=== PATIENT | male | born 1960 | race Caucasian/White ===

== ENCOUNTER 2019-06-11 15:23 | Emergency (ER) | payer OTHER ==
[~2019-06-11] VITALS: Ht 162.6 cm; Wt 80.0 kg
[~2019-06-11 15:23] MED LIST: CITA-98; HYDR-1666; IBUP100T31; LISI-471; MTF1000T; SULF1TAB23; [UNRECOGNIZED DRUG - CODE]; [UNRECOGNIZED DRUG - CODE]; [UNRECOGNIZED DRUG - REMARK]
[2019-06-11 15:36] VITALS: Ht 162.6 cm; Wt 80.0 kg
[2019-06-11] MEDS ORDERED: morphine 4 MG/ML VIAL IV STA (16:52)
[2019-06-11] MEDS ORDERED: LACTATED RINGER'S 1,000 ML IV STA (16:52)
[2019-06-11] MEDS ORDERED: ONDANSETRON 4 MG INJ IV STA (16:52)
[2019-06-11] MEDS ORDERED: METF500T24 PO (17:23)
[2019-06-11] MEDS ORDERED: SULF1TAB31 PO ×2 (17:23→19:54)
[2019-06-11] MEDS ORDERED: LISI-471 PO (17:23)
[2019-06-11] MEDS ORDERED: [UNRECOGNIZED DRUG - CODE] PO (17:25)
[2019-06-11] MEDS ORDERED: VENL100T PO (17:26)
[2019-06-11] MEDS ORDERED: LANT3I SC (17:26)
[2019-06-11] MEDS ORDERED: ATOR20TA38 PO (17:26)
[2019-06-11] MEDS ORDERED: SOD CHLORIDE 0.9% 100 ML ONE (18:11)
[2019-06-11] MEDS ORDERED: IOHEXOL 300MG/ML 150 ML BTL ONE (18:11)
--- NOTE | 2019-06-11 19:14 | ERD ---
ER Documentation Chief Complaint Chief Complaint AP WITH DIARRHEA, HX HIV+ HPI 58-year-old male history of diabetes, hypertension and HIV disease on WHITE, most recent CD4 count 120 with undetectable viral load presents to the ED complaining of crampy, generalized abdominal pain and diarrhea. ROS All systems reviewed and are negative except as per history of present illness. Medications Home Meds Active Scripts Loperamide HCl (Imodium A-D) 2 Mg Capsule, 2 MG PO QID PRN for DIARRHEA for 5 Days, CAP Prov:CHIQUIS TOVAR MD 06/11/19 Sulfamethoxazole/Trimethoprim* (Bactrim Ds* Tablet) 1 Each Tablet, 1 TAB PO BID, #14 TAB Prov:CHIQUIS TOVAR MD 06/11/19 Reported Medications Atorvastatin Calcium* (Atorvastatin Calcium*) 20 Mg Tablet, 20 MG PO QHS, #30 TAB 06/11/19 Insulin Glargine* (Lantus*) 100 Unit/Ml Soln, 25 UNIT SC QHS, #1 VIAL 06/11/19 Venlafaxine Hcl* (Venlafaxine Hcl*) 100 Mg Tablet, 100 MG PO DAILY, TAB 06/11/19 Efavirenz* (Sustiva*) 600 Mg Tab, 600 MG PO DAILY, TAB 06/11/19 Metformin Hcl* (Metformin Hcl*) 500 Mg Tablet, 500 MG PO WITH BREAKFAST DINNE, #60 TAB 06/11/19 Sulfamethoxazole/Trimethoprim* (Bactrim Ds* Tablet) 1 Each Tablet, 1 TAB PO DAILY, TAB 06/11/19 Lisinopril* (Lisinopril*) Unknown Strength Tablet, 1 TAB PO DAILY, #30 TAB 06/11/19 Discontinued Reported Medications Citalopram Hydrobromide* (Celexa*) 20 Mg Tablet 03/30/11 Ibuprofen (Ibuprofen) 100 Mg Tablet 09/05/10 Hydrocodone Bit/Acetaminophen (Vicodin 5/500 Tablet) 1 Tab Tablet 09/05/10 Cyanocobalamin* (Vitamin B12*) 1,000 Mcg/Ml Soln 09/05/10 [Unk Hiv Meds] No Conflict Check 09/05/10 Efavirenz* (Sustiva*) 600 Mg Tablet 09/05/10 Trimethoprim/Sulfamethoxazole* (Bactrim* SS) 1 Tab Tab 09/05/10 Metformin* (Glucophage*) 1,000 Mg Tablet 09/05/10 Lisinopril* (Lisinopril*) 20 Mg Tablet 09/05/10 Allergies Allergies: Coded Allergies: Penicillins (Verified Allergy, Mild, HIVES, 06/11/19) PMhx/Soc History of Surgery: Yes (L ARM,SKIN GRAFT) Anesthesia Reaction: No Hx Neurological Disorder: No Hx Respiratory Disorders: No Hx Cardiac Disorders: Yes (HTN) Hx Psychiatric Problems: No Hx Miscellaneous Medical Probl: Yes (HIV +) Hx Alcohol Use: Yes (1 GLASS EVERY 2-3 MONTHS) Hx Substance Use: Yes (QUIT) Hx Tobacco Use: No Smoking Status: Never smoker FmHx No family history relevant to presenting complaint Physical Exam Vitals Vital Signs Date Temp Pulse Resp B/P (MAP) Pulse Ox O2 O2 Flow FiO2 Time Delivery Rate 06/11/19 70 20 137/79 98 Room Air 18:56 (98) 06/11/19 98.1 80 18 140/90 99 15:36 (107) Physical Exam Const: No acute distress Head: Atraumatic Eyes: Normal Conjunctiva ENT: Normal External Ears, Nose and Mouth. Neck: Full range of motion. No meningismus. Resp: Clear to auscultation bilaterally Cardio: Regular rate and rhythm, no murmurs Abd: Soft, non tender, non distended. Normal bowel sounds Skin: No petechiae or rashes Back: No midline or flank tenderness Ext: No cyanosis, or edema Neur: Awake and alert Psych: Normal Mood and Affect Result Diagram: 06/11/19 1634 06/11/19 1634 Results 24 hrs Laboratory Tests Test 06/11/19 16:34 White Blood Count 6.9 10^3/ul Red Blood Count 5.32 10^6/ul Hemoglobin 15.5 g/dl Hematocrit 45.5 % Mean Corpuscular Volume 85.5 fl Mean Corpuscular Hemoglobin 29.1 pg Mean Corpuscular Hemoglobin Concent 34.1 g/dl Red Cell Distribution Width 13.5 % Platelet Count 68 10^3/UL Mean Platelet Volume 13.2 fl Immature Granulocytes % 0.400 % Neutrophils % 79.5 % Lymphocytes % 10.9 % Monocytes % 8.2 % Eosinophils % 0.7 % Basophils % 0.3 % Nucleated Red Blood Cells % 0.0 /100WBC Immature Granulocytes # 0.030 10^3/ul Neutrophils # 5.4 10^3/ul Lymphocytes # 0.8 10^3/ul Monocytes # 0.6 10^3/ul Eosinophils # 0.1 10^3/ul Basophils # 0.0 10^3/ul Nucleated Red Blood Cells # 0.0 10^3/ul Urine Color LM Urine Clarity CLOUDY Urine pH 5.0 Urine Specific [place] 1.032 Urine Ketones NEGATIVE mg/dL Urine Nitrite NEGATIVE mg/dL Urine Bilirubin NEGATIVE mg/dL Urine Urobilinogen NEGATIVE mg/dL Urine Leukocyte Esterase NEGATIVE Capo/ul Urine Microscopic RBC 1 /HPF Urine Microscopic WBC 1 /HPF Urine Mucus FEW /HPF Urine Hemoglobin NEGATIVE mg/dL Urine Glucose 3+ mg/dL Urine Total Protein 1+ mg/dl Sodium Level 137 mmol/L Potassium Level 4.2 mmol/L Chloride Level 107 mmol/L Carbon Dioxide Level 17 mmol/L Anion Gap 13 Blood Urea Nitrogen 14 mg/dl Creatinine 0.73 mg/dl Est Glomerular Filtrat Rate mL/min > 60 mL/min Glucose Level 280 mg/dl Calcium Level 8.9 mg/dl Total Bilirubin 0.7 mg/dl Direct Bilirubin 0.00 mg/dl Indirect Bilirubin 0.7 mg/dl Aspartate Amino Transf (AST/SGOT) 32 IU/L Alanine Aminotransferase (ALT/SGPT) 23 IU/L Alkaline Phosphatase 90 IU/L Total Protein 8.3 g/dl Albumin 4.3 g/dl Globulin 4.00 g/dl Albumin/Globulin Ratio 1.07 Lipase 297 U/L Current Medications Medications Dose Sig/Jason Start Time Status Last (Trade) Ordered Route PRN Stop Time Admin Dose Reason Admin Lactated 1,000 ml @ Q1H STAT 06/11/19 DC 06/11/19 Ringer's 1,000 mls/hr IV 16:52 16:52 06/11/19 17:51 Morphine 4 mg ONCE STAT 06/11/19 DC 06/11/19 Sulfate IV 16:52 17:39 (morphine) 06/11/19 16:53 Ondansetron 4 mg ONCE STAT 06/11/19 DC 06/11/19 HCl (Zofran IV 16:52 17:38 Inj) 06/11/19 16:53 IV Flush 10 ml STK-MED 06/11/19 DC (NS 10 ml) ONCE .ROUTE 18:11 06/11/19 18:12 Sodium 100 ml @ ud STK-MED 06/11/19 DC Chloride ONCE .ROUTE 18:11 06/11/19 18:12 Iohexol 150 ml STK-MED 06/11/19 DC (Omnipaque ONCE .ROUTE 18:11 300mg/ ml) 06/11/19 18:12 1 tab ONCE ONCE 06/11/19 Trimethoprim/ PO 20:00 06/11/19 20:01 Sulfamethoxaz ole (Bactrim (Ds)) Procedures/MDM DOCUMENTS REVIEWED: ED nurse, [ ] IMAGING: PROCEDURE: CT Abdomen and Pelvis with intravenous contrast. CLINICAL INDICATION: Abdominal Pain/Diarrhea/HIV . TECHNIQUE: CT scan of the abdomen and pelvis with intravenous contrast was performed on a multi-detector high-resolution CT scanner. The patient was scanned following the uncomplicated intravenous administration of 100 cc of Isovue 300 contrast. Coronal and sagittal reformatted images were obtained from the axial source images. DICOM images are available. CTDIvol 6.64 mGy, and DLP 400.6 mGy.cm. One or more of the following dose reduction techniques were used: - Automated exposure control. - Adjustment of the mA and/or kV according to patient size. - Use of iterative reconstruction technique. COMPARISON: None available FINDINGS: Lower thorax: Normal. Liver: Nodular surface contour of the liver, compatible with cirrhosis. Portal vein is patent. Biliary: Gallbladder is normal. No intrahepatic or extrahepatic biliary dilatation. Pancreas: Normal. Spleen: Normal. Adrenal Glands: Normal. Urinary: Normal. Gastrointestinal: There is a short segment of mildly distended small bowel in the left abdomen. Appendix is unremarkable. Fluid stool in the colon compatible with history of diarrhea. Lymph nodes: No enlarged abdominal or pelvic lymph nodes. Prominent sub centimeter lymph nodes seen at the root of the mesentery. Vascular: Normal. Peritoneum/mesentery: No free fluid or free air. Mild mesenteric stranding noted. Reproductive organs: Normal. Musculoskeletal: Degenerative changes of the spine. IMPRESSION: Short segment of mildly distended small bowel in the left abdomen suggestive of a focal ileus. Correlate for enteritis. 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 Nodular surface contour of the liver compatible with hepatic cirrhosis. RPTAT: QQ Enrrique Isaac, Physician Date Time Electronically viewed and signed by Enrrique Isaac Physician on 06/11/2019 18:59 HtN/ ED COURSE: [] REEXAMINATION/REEVALUATION: Time: 19:50. Doing well. Abdomen soft nontender. Tolerating p.o.'s. No diarrhea. [employer] DECISION MAKIN-year-old male history of diabetes, hypertension and HIV disease on WHITE, most recent CD4 count 120 with undetectable viral load presents to the ED complaining of crampy, generalized abdominal pain and diarrhea.. Stable for discharge with precautionary instructions and outpatient follow-up as counseled. Counseled patient regarding diagnostic workup, diagnosis and need for followup. Understands to return to ED if symptoms recur, worsen or any other concerns. Departure Diagnosis: Primary Impression: Diarrhea Diarrhea type: unspecified type Qualified Codes: R19.7 - Diarrhea, unspecified Additional Impressions: Acute generalized abdominal pain HIV disease Condition: Serious CHIQUIS TOVAR MD Jun 11, 2019 19:13
[2019-06-11] MEDS ORDERED: LOPE-117 PO (19:54)
[2019-06-11] MEDS ORDERED: TRIMETHOPRIM/SULFAMETHOX (DS) TAB PO ONE (20:00)
[2019-06-11 20:12] VITALS: BP 138/82; PULSE 77; RESP 20
== END 2019-06-11 20:13 | disposition home or self-care (01) ==
LOC: E/R 15:23
DX: B20 Human immunodeficiency virus [HIV] disease (principal); E11.9 Type 2 diabetes mellitus without complications; I10 Essential (primary) hypertension; Z79.4 Long term (current) use of insulin
CPT/HCPCS: 36415; 74177; 80053; 81001; 83690; 85025; 96374; 96375; 99285; J2270; J2405; J7120; Q9967